=== PATIENT | male | born 1970 | race Caucasian/White ===

== ENCOUNTER → 2024-10-04 09:15 | Outpatient (REF) | payer OTHER, SELFPAY | LOC: HWRAD 09:15 | PROVIDERS: ATTENDING PHYSICIAN Student in an Organized Health Care Education/Training Program | DX: R10.9 Unspecified abdominal pain (principal) | CPT/HCPCS: 76775 ==

== ENCOUNTER → 2024-10-17 15:30 | Outpatient (REF) | payer OTHER, SELFPAY | LOC: RAD 15:30 | PROVIDERS: ATTENDING PHYSICIAN Student in an Organized Health Care Education/Training Program | DX: N13.30 Unspecified hydronephrosis (principal) | CPT/HCPCS: 74177; Q9967 ==

== ENCOUNTER → 2024-11-21 09:31 | Outpatient (REF) | payer SELFPAY | LOC: RAD 09:31 | PROVIDERS: ATTENDING PHYSICIAN Student in an Organized Health Care Education/Training Program | DX: I70.90 Unspecified atherosclerosis (principal) | CPT/HCPCS: 75571 ==

== ENCOUNTER → 2024-11-21 09:33 | Outpatient (REF) | payer OTHER, SELFPAY | LOC: RAD 09:33 | PROVIDERS: ATTENDING PHYSICIAN Specialist; FAMILY PHYSICIAN Student in an Organized Health Care Education/Training Program | DX: Q62.11 Congenital occlusion of ureteropelvic junction (principal) | CPT/HCPCS: 78708; A9539 ==